=== PATIENT | male | born 1985 | race Caucasian/White ===

== ENCOUNTER → 2024-03-23 16:24 | Outpatient (REF) | payer BC, SELFPAY | LOC: RAD 16:24 | PROVIDERS: ATTENDING PHYSICIAN Emergency Medicine | DX: S99.921A Unspecified injury of right foot, initial encounter (principal) | CPT/HCPCS: 73630 ==

== ENCOUNTER 2025-03-01 04:17 | Emergency (ER) | payer BC, SELFPAY ==
[2025-03-01 04:18] VITALS: BP 176/110
--- NOTE | 2025-03-01 04:47 | ED.GENMED ---
History of Present Illness
General
Chief Complaint: Abdominal Symptoms
Source: patient
Exam Limitations: none
Time Seen by Provider: 03/01/25 04:27
Nursing documentation reviewed up to this point in time: agreed with
History of Present Illness
History of Present Illness:
Note:
CHIEF COMPLAINT(S)
Persistent diarrhea and anal pain.
HISTORY OF PRESENT ILLNESS
The patient is a 40-year-old male with past medical history of GERD, vestibular migraines, who presents to the ER today with persistent diarrhea and significant pain during and after defecation, which began on Saturday around 6:00 to 6:30.
The patient reports that the symptoms came on suddenly while he was driving. The patient recently returned from a vacation in [place] and initially considered food poisoning as a potential cause due to the timing. He does admit to drinking more
alcohol than he usually does recently with the vacation. He reported the diarrhea started suddenly, with stools being non-solid and frequent, occurring every five to seven minutes. The patient began taking loperamide (Imodium) Saturday night, which
helped reduce the frequency but caused bloating and discomfort. He noted a painful burning sensation and irritation likely due to stomach acid, as he has not been able to consume much solid food. The patient does not report abdominal pain or
vomiting. He denies any blood in the stool but describes a severe burning sensation at the rectum which started recently, comparing it to 'fire and razor blades.' This sensation subsides to a moderate level after applying hydrocortisone cream, which
he has been using regularly. He describes sleep interruptions due to the need for bowel movements, occurring every hour and a half during the night.
The patient has been trying to maintain hydration with water and sports drinks, although he reports a lack of appetite, having consumed just two grilled cheese sandwiches recently. No one else on his trip has experienced similar symptoms. He has
not had any fever. He denies any recent travel to the country. He denies any recent antibiotics. He denies any recent hospitalizations. He is never had this before.
MEDICATIONS
The patient is currently using hydrocortisone cream for local relief of the anal burning.
REVIEW OF SYSTEMS
- Gastrointestinal: Frequent and watery diarrhea, no vomiting, no blood in stool, significant pain post-defecation.
- General: Low appetite, maintaining hydration with water and sports drinks.
- Skin: Anal burning sensation relieved partially by hydrocortisone cream.
PHYSICAL EXAM
General: Alert, no acute distress.
Skin: Warm, dry.
Head: Normocephalic, atraumatic.
Neck: Supple, trachea midline.
Eyes, Ears, Nose, Mouth, and Throat: Oral mucosa moist.
Cardiovascular: Normal peripheral perfusion, No edema.
Respiratory: Respirations are non-labored.
Gastrointestinal: Abdomen nondistended.
Back: Normal range of motion, Normal alignment.
Musculoskeletal: Normal range of motion, normal strength.
Neurological: Alert and oriented to person, place, time, and situation, No focal neurological deficit observed.
Psychiatric: Cooperative, appropriate mood & affect.
PLAN
1. Administer IV fluids to ensure proper hydration.
2. Perform laboratory tests to evaluate electrolyte levels and hydration status.
3. Collect a stool sample for culture to identify potential bacterial causes of diarrhea, with future antibiotic treatment considered based on results.
4. Barrier cream to help with irritation
5. Educate the patient on signs of worsening symptoms and when to return to care.
DIFFERENTIAL DIAGNOSIS
The Differential Diagnosis includes, in no particular order and is not limited to:
1. Gastroenteritis (viral, bacterial, or parasitic)
2. Food poisoning
3. Inflammatory bowel disease
4. Irritable bowel syndrome
5. Diverticulitis
6. Celiac disease
7. Lactose intolerance
8. Medication-induced diarrhea (considering recent use of loperamide)
9. Anorectal abscess
10. Hemorrhoids
CHART REVIEW
Reviewed ER physician documentation from 11/15/2015 patient seen for chest pain, he had unremarkable workup and was discharged
MDM/DISPOSITION
The patient is a 40-year-old male with past medical history of GERD, vestibular migraines, who presents to the ER today with persistent diarrhea and significant pain during and after defecation, which began on Saturday morning around 6:00 to 6:30.
Frequency has decreased with use of Imodium. No one else has been sick in the home. No recent antibiotics no C.diff risk factors.
On physical exam, patient is well-appearing in no acute distress. Case reviewed with ED attending. Will give dose of Lomotil. Will try to obtain stool sample. If patient unable to provide stool sample, will provide home collection resources.
Labs reviewed, no leukocytosis noted. No fever. CMP reviewed, mildly elevated total bilirubin at 1.4 with associated mild transaminitis. Patient does admit to heavily drinking recently with a vacation so this could be explained by that also
hepatitis A also possibility but less likely considering no fever, no vomiting, no individuals on trip or at home with associated symptoms. Will complete liter of fluid. Did provide barrier cream to help with rectal irritation. Did provide new
prescription for hydrocortisone cream. Discussed strict return precautions.
Past History
Past History
ED Past Medical History: None and Other (GERD, hypercholesterolemia on a recent blood test)
Social History
Tobacco: Non-smoker
Personal:
Living: with family
Employment: Employed
Review of Systems
Review of Systems
All Other Systems: ROS reviewed and negative except as documented in HPI and ROS
Phy Exam
Physical Exam
Physical Exam:
see hpi
Sepsis
Sepsis Screening
Sepsis Assessment: Sepsis Ruled Out
Sepsis Screen
Sepsis Screen: Sepsis Ruled Out
Date: 03/01/25
Time: 06:40
Course
Orders/Labs/Results
Orders:
Orders
03/01/25 04:42
0.9% Sodium Chloride 1000 ml [Nss] 1,000 ml IV BOLUS
03/01/25 04:45
Stool Culture Urgent
LINDA Source: Feces/Stool
Specimen Description:
03/01/25 04:49
Complete Blood Count/With Diff Urgent
Comprehensive Metabolic Panel Urgent
Hepatitis A Antibody, Total Urgent
Hepatitis A IgM Antibody Urgent
Hepatitis B Core Ab, IgM Urgent
Hepatitis B Core Ab, Total Urgent
Hepatitis B Surface Antibody Urgent
Hepatitis B Surface Antigen Urgent
Hepatitis C Antibody Urgent
03/01/25 04:57
Zinc Oxide 40% [Desitin Maximum Strength Paste] See Dose Instructions TOPICAL NOW STA
03/01/25 05:44
Add On- LAB Stat
Tests Added?: viral hepatitis panel
03/01/25 05:54
Diphenoxylate / Atropine [Lomotil] 1 tablet PO NOW STA
Abnormal Lab Results
03/01/25
04:49
RBC 4.68 L 10^6/uL
(4.70-6.10)
MCH 32.7 H pg
(27.0-31.0)
Absolute Lymphs (auto) 0.7 L 10^3/uL
(1.2-3.4)
Neutrophils % 81.9 H %
(42.2-75.2)
Lymphocytes % 11.1 L %
(20.5-51.1)
Total Bilirubin 1.4 H mg/dl
(0.2-1.3)
AST 62 H U/L
(17-59)
ALT 102 H U/L
(0-50)
03/01/25 04:49
03/01/25 04:49
Vital Signs
Initial and Last Documented VS:
Initial Vital Signs
Temp Pulse Resp BP Pulse Ox
97.8 F 94 22 176/110 97
03/01/25 04:18 03/01/25 04:18 03/01/25 04:18 03/01/25 04:18 03/01/25 04:18
Last Documented Vital Signs
Temp Pulse Resp BP Pulse Ox
97.8 F 78 18 142/81 99
03/01/25 04:18 03/01/25 06:12 03/01/25 06:12 03/01/25 06:12 03/01/25 06:12
*Pulse Oximetry
SaO2: 97
Oxygen Mode of Delivery: Room air
Patient hypoxic: no
*Critical Care Note
Total Time (30-74mins, 75-104mins- exclusive of procedures): Not Applicable
ED Attending Note
-
Portions of this chart may have been created with voice recognition software.� Occasional wrong word or��sound alike� substitutions may have occurred due to the inherent limitations of voice recognition software.
Discharge Plan
Departure
Patient Disposition: Home (Routine Discharge)
Date of Disposition: 03/01/25
Time of Disposition: 06:40
Patient with high blood pressure during this ER visit?: Yes
Condition: Good
Discharge Problem:
Diarrhea
Instructions: Diarrhea in teens and adults, [place] diet, BLOOD PRESSURE
Prescriptions:
New
hydrocortisone 1 % cream
1 applic topical BID PRN (Reason: skin irritation) Qty: 28.35 0RF
No Action
naproxen sodium [Aleve] 220 MG tablet
220 mg PO PRN PRN (Reason: pain)
omeprazole 20 MG capsule,delayed release(DR/EC)
20 mg PO DAILY
Referrals:
Christofer Caro MD [Family Provider, Family Practice]
Activity Restrictions/Additional Instructions:
As discussed, you can continue taking Imodium. You can apply the hydrocortisone cream to the rectal area up to twice daily. I would not use this cream greater than 1 week as there is a risk of mucosal thickening. You can also apply the barrier
paste which will help with irritation.
As discussed we added on hepatitis testing. Please call your primary care provider to schedule follow-up appointment in 1 week for reassessment and repeat complete metabolic panel.
Please continue to stay well-hydrated. I recommend for the next day or 2 sticking to an all liquid diet and then transitioning to back to solids as tolerated.
PLEASE RETURN TO ER SHOULD YOU DEVELOP FEVERS OR CHILLS, ABDOMINAL PAIN, BLOOD IN YOUR STOOLS/rectal bleeding, LIGHTHEADEDNESS, DIZZINESS, CHEST PAIN, SHORTNESS OF BREATH, OR ANY OTHER SIGNS OR SYMPTOMS RECENTLY.
Interventions
Interventions:
*Risk Screen - Suicide Last Done: 03/01/25 04:18
*General Assessment Last Done: 03/01/25 04:47
*Neglect/Abuse Screening Last Done: 03/01/25 04:18
*ED- Fall Risk Assessment Last Done: 03/01/25 04:36
*ED COVID-19 Vaccine History Last Done: 03/01/25 04:47
*ED Influenza Vaccine History Last Done: 03/01/25 04:47
XF-Dnhmdz-Cqknjzccyc Assessment Last Done: 03/01/25 04:33
Discharge Date and Time
Print Language: CYMRAES
[2025-03-01] MEDS: NSS 1000 IV (04:50)
[2025-03-01 05:10] LABS: Hematocrit 43.6 % (39.0-52.0); Hemoglobin 15.3 g/dL (13.0-18.0); Mean Corp Hgb Conc. 35.1 g/dL (33.0-37.0); Mean Corpuscular Volume 93.2 fL (80.0-94.0); Nucleated Red Blood Cells % 0 % (-); Platelet Count 143 10^3/uL (130-400); Red Cell Dist. Width 12.1 % (11.5-14.5)
[2025-03-01] MEDS: DESITIN MAXIMUM STRENGTH PASTE 1 APPLIC TOPICAL (05:16)
[2025-03-01 05:21] LABS: ALT (SGPT) 102 U/L (0-50); AST (SGOT) 62 U/L (17-59); Albumin 4.9 g/dl (3.5-5.0); Alkaline Phosphatase 42 U/L (38-126); Blood Urea Nitrogen 14 mg/dl (9-20); Calcium 9.3 mg/dl (8.4-10.2); Carbon Dioxide 27 mmol/L (22-30); Chloride 103 mmol/L (98-107); Glucose 96 mg/dl (70-99); Potassium 4.0 mmol/L (3.5-5.1); Sodium 137 mmol/L (135-145); Total Protein 7.9 g/dl (6.3-8.2); eGFR > 60.00
[2025-03-01] MEDS: LOMOTIL 1 TABLET PO (06:07)
[2025-03-01 06:12] VITALS: BP 142/81
[2025-03-01 18:52] LABS: Hepatitis B Surface Antigen Negative (Negative)
[2025-03-01 19:10] LABS: Hepatitis A Antibody, Total Negative (Negative); Hepatitis C Antibody Negative (Negative)
== END 2025-03-01 07:12 | disposition home or self-care (01) ==
LOC: EMR 04:17
PROVIDERS: Physician Assistant; EMERGENCY PHYSICIAN Emergency Medicine; FAMILY PHYSICIAN Family Medicine
DX: R19.7 Diarrhea, unspecified (principal); K62.89 Other specified diseases of anus and rectum; E78.00 Pure hypercholesterolemia, unspecified
CPT/HCPCS: 96360; 99284; 80053; 85025; 86704; 86706; 86708; 86803; 87045; 87046; 87077; 87340; 87427